=== PATIENT | male | born 1975 | race Caucasian/White ===

== ENCOUNTER → 2017-09-02 | Outpatient (CLI) | payer OTHER ==
[~2017-09-02] MED LIST: KETO10 PO; LISI-360 PO; LORTA5 PO; METH750T2 PO; OMEG100037; PRAS1CAP3; RED600TA PO; TAB-TAB PO; VITA100020
== END ==
LOC: HRSP 11:09
PROVIDERS: ATTEND Specialist
DX: R06.00 Dyspnea, unspecified (principal)
CPT/HCPCS: 94060; 94726; 94729